=== PATIENT | female | born 1995 | race Caucasian/White ===

== ENCOUNTER 2018-05-23 12:55 | Emergency (ER) | payer OTHER ==
[2018-05-23] MEDS ORDERED: IBUPROFEN 600 MG TAB PO ONE (13:08)
[2018-05-23] MEDS ORDERED: ONDANSETRON DISINTEGRATING 4 MG TAB PO ONE (13:13)
--- NOTE | 2018-05-23 13:35 | EDPHY ---
H & P Time Seen by Provider: 05/23/18 13:05 HPI/ROS: CHIEF COMPLAINT: Slip on ice right wrist pain HISTORY OF PRESENT ILLNESS: 22-year-old zevj-dfal-qanrxuud female was walking shortly prior to arrival, slipped on ice landed on her outstretched right hand. She is complaining of pain to her distal radius. No paresthesia. No sensory or motor deficit. Intact skin. No head injury. This was a mechanical, non syncopal episode. PHYSICAL EXAM (Prior to examination, patient consented to physical exam, hands were washed and my usual and customary physical exam procedures followed) 1) GENERAL: Well-developed, well-nourished, alert and oriented. Answering questions appropriately. 2) HEAD: Normocephalic 3) HEENT: Pupils equal, round, reactive to light bilaterally. 4) LUNGS: Breathing comfortably. 5) MUSCULOSKELETAL: Tender to palpation distal radius. Soft compartments. Normal coloration. 6) SKIN: Intact. No puncture wound. 7) VASCULAR: pulses and cap refill present are brisk 8) NEUROLOGIC: Radial, ulnar, median nerve function intact with no deficits appreciated on exam DIFFERENTIAL DIAGNOSIS: in no particular order including but not limited to fracture, sprain, compartment syndrome Smoking Status: Never smoked Constitutional: Initial Vital Signs Temperature (C) 36.7 C 05/23/18 12:58 Heart Rate 81 05/23/18 12:58 Respiratory Rate 16 05/23/18 12:58 Blood Pressure 134/88 H 05/23/18 12:58 O2 Sat (%) 97 05/23/18 12:58 O2 Delivery Mode Room Air Allergies/Adverse Reactions: No Known Allergies Allergy (Unverified 05/23/18 12:57) Home Medications: Medication Instructions Recorded Hydrocodone/APAP 5/325 [Mcgrath 1 tab PO Q6 PRN #7 tab 05/23/18 5/325 (RX)] Ortho-Novum 1-35-28 Tablet 05/23/18 Prozac 10 MG (*) 05/23/18 MDM/Departure - MDM Imaging Results: Imaging Impressions Wrist X-Ray 05/23/18 13:00 Impression: Comminuted intraarticular fracture of the distal radius with mild dorsal displacement and angulation. Images reviewed myself Procedures: Procedure: Splint A volar Orthoglass splint was applied by ER gas plant technician. After application of the splint I returned and re-examined the patient. The splint was adequately immobilizing the joint and distal to the splint the patient's circulation and sensation were intact. Patient shows no signs of compartment syndrome. Was given orthopedic precautions. Medications Given: Discontinued Medications Ibuprofen (Motrin) 600 mg PO EDNOW ONE Stop: 05/23/18 13:09 Last Admin: 05/23/18 13:15 Dose: 600 mg Ondansetron HCl (Zofran Odt) 4 mg PO EDNOW ONE Stop: 05/23/18 13:14 Last Admin: 05/23/18 13:20 Dose: Not Given ED Course/Re-evaluation: Patient was also seen and examined by Dr. Wale Reyes orthopedics who was in the emergency department.. He recommended volar Orthoglass splint. Today is Thursday. He would like to see the patient the office on Thursday. Care of patient under supervision of secondary supervising physician Dr Ochoa with whom I discussed case. My usual and customary orthopedic precautions instructions provided. Patient feels comfortable being discharged. - Depart Disposition: Home, Routine, Self-Care Clinical Impression: Fracture of right distal radius Qualifiers: Encounter type: initial encounter Fracture type: closed Fracture morphology: other intra-articular Qualified Code(s): S52.571A - Other intraarticular fracture of lower end of right radius, initial encounter for closed fracture Condition: Good Instructions: Wrist Fracture in Adults (ED) Additional Instructions: Return to the ER immediately if you experience discoloration, have worsening pain, numbness, tingling, or any other symptoms that concern you. If you received x-rays in the emergency department today, be advised, that ligamentous , tendon, muscular, and other non-bony injury cannot be fully ruled out. Try to keep your affected extremity elevated above the level of your chest, and keep cold packs on the affected area, for the next 48 hours. Prescriptions: Hydrocodone/APAP 5/325 [Mcgrath 5/325 (RX)] 1 tab PO Q6 PRN #7 tab PRN Reason: Pain, Severe Referrals: Wale Reyes MD [Medical Doctor] - 05/26/18
[2018-05-23 14:15] VITALS: BP 123/77
--- NOTE | 2018-05-23 14:36 | GCON ---
I was asked to see the patient by the emergency room. HPI: The patient is a very pleasant, left-hand dominant, 22-year-old woman who was hiking earlier to day when she fell onto an outstretched right hand while hiking. She had immediate pain and inability to use that right hand. PHYSICAL EXAM: On physical exam, the patient has swelling about the right wrist without gross deform ity. It is quite tender to palpation. IMAGING: Demonstrates an intraarticular distal radius fracture. IMPRESSION: Right closed intraarticular distal radius fracture with grossly acceptable alignment. ASSESSMENT AND PLAN: At this point, I have recommended to the emergency room physician that we splin t the patient for a few days. I will see her on Thursday, at which point we will put her in a cast and get some additional imaging. At this point, I do not think a sugar tong is necessary as she is f airly nondisplaced and we can leave her in a volar resting slab and will reassess in a few days. The plan was communicated with the emergency room physician. The patient has an appointment to see me adi sultana [facility] at 10:20 on Thursday. /[id number]/MODL
== END 2018-05-23 14:15 | disposition home or self-care (01) ==
PROC: 2W3CX1Z Immobilization of Right Lower Arm using Splint (ICD-10-PCS; principal; 2018-05-23)
DX: S52.571A Other intraarticular fracture of lower end of right radius, initial encounter for closed fracture (principal); W01.0XXA Fall on same level from slipping, tripping and stumbling without subsequent striking against object, initial encounter; Y93.9 Activity, unspecified; Y92.9 Unspecified place or not applicable
CPT/HCPCS: A4565